=== PATIENT | male | born 1955 | race Caucasian/White ===

== ENCOUNTER → 2024-05-02 | Outpatient (CLI) | payer MEDICARE, SELFPAY ==
[2024-05-02 15:16] LABS: Free T4 (Free Thyroxine) 1.34 ng/dL (0.89-1.76); Thyroid Stimulating Hormone 6.44 uIU/mL (0.55-4.78)
== END | disposition home or self-care (01) ==
PROVIDERS: PCP Family Medicine; Referring Provider Family Medicine; Visit Provider Family Medicine
DX: E03.2 Hypothyroidism due to medicaments and other exogenous substances (principal)
CPT/HCPCS: 36415; 84439; 84443

== ENCOUNTER 2024-05-06 16:25 | Emergency (ER) | payer MEDICARE, SELFPAY ==
--- NOTE | 2024-05-06 16:32 | EKG_ITS ---
[facility] Test Date: 2024-05-06 Pat Name: HOLLIE LEMA Department: Room: - Gender: Male [employer] Eligibility Assistant: : 1955 Requested By: Subhash Santiago Order Number: [id number] Reading MD: Subhash Santiago Measurements Intervals Theresa Rate: 48 P: NC: QRS: -9 QRSD: 94 T: 62 QT: 430 QTc: 386 Interpretive Statements ATRIAL FIBRILLATION WITH SLOW VENTRICULAR RESPONSE POSSIBLE ANTERIOR MYOCARDIAL INFARCTION , OF INDETERMINATE AGE [30 ms Q WAVE IN V3/V4, OR R < 0.2 mV IN V4] Compared to ECG 06/26/2023 05:44:05 Myocardial infarct finding now present /store/S0/[id number].pdf
[2024-05-06 16:55] VITALS: BP 119/79; PULSE 48; RESP 18; TEMP 37; O2SAT 95
--- NOTE | 2024-05-06 17:14 | PD.EDRME ---
Rapid Medical Screening Exam E Arrival date/time: 05/06/24 16:25 68-year-old male with a history of atrial fibrillation presents to the emergency room with a chief complaint shortness of breath, chest pain, nausea x 4 days. Patient states he has been having difficulty sleeping. I have greeted and performed a focused initial assessment of this patient. A comprehensive ED assessment and evaluation of the patient, analysis of all test results, and completion of the medical decision making process will be conducted by additional ED providers. Chief Complaint: Arrhythmia/Palpitations Vital signs: Vital Signs Temperature 98.6 F 05/06/24 16:55 Pulse Rate 48 L 05/06/24 16:55 Respiratory Rate 18 05/06/24 16:55 Blood Pressure 119/79 05/06/24 16:55 Pulse Oximetry (%) 95 05/06/24 16:55 Oxygen Delivery Method Room Air 05/06/24 16:55 Vital signs reviewed by provider: Yes
[2024-05-06 17:44] LABS: Collection Type, Urine Clean Catch; Squamous Epithelial Cell,Urine 0 /hpf (0-5)
[2024-05-06 17:46] LABS: Basophils % (Auto) 1 % (0-2.5); Eosinophils # (Auto) 0.2 Thou/mm3 (0.0-0.5); Eosinophils % (Auto) 3 % (0-10); Hematocrit 36.1 % (41.0-53.0); Hemoglobin 13.1 g/dL (13.5-16.0); Immature Granulocytes % (Auto) 1 % (0-0); Immature Granulocytes Auto 0.04 Thou/mm3 (0.00-0.00); Lymphocytes % (Auto) 27 % (10-50); Mean Corpuscular HGB Conc 36.3 g/dl (31.0-37.0); Mean Corpuscular Volume 88 fL (80-100); Monocytes # (Auto) 0.7 Thou/mm3 (0.0-0.8); Monocytes % (Auto) 10 % (0-12); Neutrophils # (Auto) 4.3 Thou/mm3 (1.8-7.7); Neutrophils % (Auto) 59 % (37-80); Nucleated Red Blood Cell % 0 /100 WBC (0); Platelet Count 202 Thou/mm3 (140-440); RDW Standard Deviation 40.9 fL (35.1-43.9); Red Blood Count 4.09 Miln/mm3 (4.50-5.90); White Blood Count 7.3 Thou/mm3 (3.8-10.6)
[2024-05-06 18:02] LABS: Partial Thromboplastin Time 31.3 Seconds (22.0-36.0); Prothrombin Time 11.1 Seconds (9.0-12.2)
[2024-05-06 18:10] LABS: B-Type Natriuretic Peptide 134 pg/mL (0-100)
[2024-05-06 18:13] LABS: Alanine Aminotransferase 13 U/L (10-49); Albumin, Serum 4.4 gm/dL (3.4-4.8); Albumin/Globulin Ratio 1.8 (1.2-2.2); Alkaline Phosphatase 46 U/L (46-116); Anion Gap 6 (7-16); Aspartate Amino Transferase 11 U/L (0-34); BUN/Creatinine Ratio 23 Ratio (12-20); Bilirubin,Total 0.6 mg/dL (0.3-1.2); Blood Urea Nitrogen 23 mg/dL (9-23); Calcium 9.6 mg/dL (8.3-10.6); Calcium (Corrected) 9.6 mg/dL (8.5-10.1); Carbon Dioxide 26.9 mMol/L (20.0-31.0); Chloride 105 mMol/L (98-107); Free T4 (Free Thyroxine) 1.29 ng/dL (0.89-1.76); Globulin 2.5 gm/dL (2.3-3.5); Glucose 94 mg/dL (74-106); Magnesium 2.4 mg/dL (1.6-2.6); Osmolality,Calculated 279 (275-295); Sodium 138 mMol/L (136-145); Thyroid Stimulating Hormone 5.29 uIU/mL (0.55-4.78); Total Protein 6.9 gm/dL (5.7-8.2); Troponin I < 0.020 ng/mL (0.0-0.045); eGFR > 60 See Note
--- NOTE | 2024-05-06 18:28 | PD.EDARRY ---
ED Arrhythmia Palp. RME/HPI General Chief Complaint: Arrhythmia/Palpitations Stated Complaint: Afib sent by Dr. Story Time Seen by Provider: 05/06/24 18:19 Arrival date/time: 05/06/24 16:25 RME / HPI RME / HPI narrative: 05/06/24 16:25 68-year-old male with a history of atrial fibrillation presents to the emergency room with a chief complaint shortness of breath, chest pain, nausea x 4 days. Patient states he has been having difficulty sleeping. I have greeted and performed a focused initial assessment of this patient. A comprehensive ED assessment and evaluation of the patient, analysis of all test results, and completion of the medical decision making process will be conducted by additional ED providers. ------ This section includes all my notes and documentations, including HPI, PE, and ED course. Malvin Suh MD HPI: 68yo male with a history of aFib, HTN presents to the ED for a chief complaint of palpitations on and off for days and weeks, especially at night. Patient states he has a history of aFib and is on Eliquis 5mg BID that he is compliant with. He denies any chest pain, shortness of breath or any other associated symptoms. No other complaints reported. ROS: All negative except as documented in HPI. Physical Exam: General: Alert and oriented. Appears anxious. Eyes: Conjunctivae and lids clear. ENT: No nasal congestion. Neck: Supple. Heart: Irregularly irregular. Lungs: No respiratory distress. Good air movement. No rhonchi, wheezing, rales. Abdomen: Soft and nontender. Legs: No clubbing, cyanosis, edema. Skin: Warm and dry. Neuro: Alert and oriented X 3. I reviewed all diagnostic test results. My interpretation of the EKG is atrial fibrillation with no acute ST?T changes. Blood tests and urine tests unremarkable. At this point, diagnoses include palpitations. Prescribed a trial of Xanax and more outpatient cardiac workup. Based on my best medical judgment, made decision no further evaluation or treatment indicated at this time. Patient understands and agrees to the discharge instructions customized and printed, see [email or web address]. Discharge instructions from Dr. Suh: 1. After extensive evaluation, there is no life-threatening condition. Such as heart attack and extremely fast/slow heart rate. 2. Your symptoms may be due to underlying stress or anxiety or nerves. This is fairly common. 3. Take Xanax as needed. Whether this helps or not will be valuable information to your private doctors. 4. See your registered nurse nursery on 05/10/2024 for recheck and further care. To make sure there is no serious underlying heart condition, ask to help you get more tests for your heart that cannot be done here in the ER. Such as Holter Monitor (cardiac monitoring at home from a day to even a month), heart stress test (on treadmill or with medication), echocardiogram (imaging of your heart structures), heart catherization (checking for blockages in your heart arteries), and cardioversion. 5. Seek immediate medical care with worsening or with any concerns. Malvin Suh MD Related Data Home Medications ?Medication ?Instructions ?Recorded ?Confirmed famotidine 20 mg tablet (Pepcid) 20 mg PO BID 03/26/18 03/26/18 gabapentin 300 mg capsule 900 mg PO BID 03/26/18 03/26/18 (Neurontin) levothyroxine 175 mcg tablet 175 mcg PO QDAY 03/26/18 03/26/18 nebivolol 5 mg tablet (Bystolic) 1 tab PO DAILY 03/26/18 03/26/18 hydrocodone 10 mg-acetaminophen 1 tab PO [id number] PRN Pain 03/27/18 03/27/18 325 mg tablet ([place]) tramadol 200 mg tablet,extended 200 mg PO QDAY 03/27/18 03/27/18 release 24hr mphase Previous Rx's ?Medication ?Instructions ?Recorded alprazolam 0.5 mg tablet (Xanax) 0.5 mg PO BID PRN anxiety #10 tabs 05/06/24 Allergies Allergy/AdvReac Type Severity Reaction Status Date / Time Penicillins Allergy Intermediate Rash Verified 05/06/24 16:31 Sulfa (Sulfonamide Allergy Verified 05/06/24 16:31 Antibiotics) Review of Systems Review of Systems Systems Reviewed: All systems reviewed, normal except as documented Past Medical History Past Medical History NEUROLOGIC: Positive Neurological Disorders (Tardive kinesia) CARDIAC: Positive Atrial Fibrillation and Hypertension; Negative Cardiac Disorders or Congestive Heart Failure RESPIRATORY: Negative Chronic Obstructive Pulmonary Disease (COPD) or Asthma GASTROINTESTINAL: Positive Gastrointestinal Disorders, Gall Bladder Disease and Hiatal Hernia GENITOURINARY: Negative Renal Disease ENDOCRINE: Positive Endocrine Disorders and Hypothyroidism; Negative Diabetes Mellitus Type 1 or Diabetes Mellitus Type 2 HEMATOLOGIC: Negative Sickle Cell Disease Surgical History SURGICAL: Positive Abdominal Surgery Social History SMOKING STATUS: Never smoker ED Exam Narrative Physical exam: As noted in HPI. Course Quality Measures none Orders Category Date Time Status EKG (ED ONLY) *Do not use* NOW Care 05/06/24 16:32 Completed EKG (ED Only) Stat Exams 05/06/24 16:32 Draft B-Type Natriuretic Peptide Stat Lab 05/06/24 17:23 Completed CBC Stat Lab 05/06/24 17:23 Completed Comprehensive Metabolic Panel Stat Lab 05/06/24 17:23 Completed Drug Screen,Urine Stat Lab 05/06/24 17:36 Received Free T4 (Free Thyroxine) Stat Lab 05/06/24 17:23 Completed Magnesium Stat Lab 05/06/24 17:23 Completed Partial Thromboplastin Time Stat Lab 05/06/24 17:23 Completed Prothrombin Time with INR Stat Lab 05/06/24 17:23 Completed TSH [Thyroid Stimulating Hormone] Stat Lab 05/06/24 17:23 Completed Troponin I Stat Lab 05/06/24 17:23 Completed Urinalysis Stat Lab 05/06/24 17:36 Received Vital Signs Vital signs: Vital Signs Temperature 98.6 F 05/06/24 16:55 Pulse Rate 48 L 05/06/24 16:55 Respiratory Rate 18 05/06/24 16:55 Blood Pressure 119/79 05/06/24 16:55 Pulse Oximetry (%) 95 05/06/24 16:55 Oxygen Delivery Method Room Air 05/06/24 16:55 Arrhythmia/Palpitations MDM Narrative MDM Narrative:: Scribe Attestation: 05/06/24 Maryse Dietz am scribing for and in the presence of Dr. Suh. Patient data External records reviewed:: [facility] previous records (Per chart review, patient was seen here on 06/26/23 for chronic aFib.) Clinical information provided by:: patient Social determinants that could affect healthcare access:: none Patient has the following chronic illnesses:: aFib, HTN How is presenting disease/condition affected by chronic disease/condition?: caused by Evaluation data The following diagnostics were reviewed and interpreted by me:: lab results and EKG tracing(s) (My interpretation of the EKG is: Atrial fibrillation (48 bpm) with nonspecific ST-T changes. Malvin Suh MD) Lab and/or radiology exams considered but not ordered:: none Interpretation Summary: Normal diagnostics Medications / Prescriptions Medications or Prescriptions considered but not ordered:: none Medication administrations:: none Consultations Consultation(s) initiated? (list below): No Diagnosis Differential diagnosis arrhythmia/palpitations: palpitations, anxiety, sinus tachycardia, artial fibrillation, artial flutter, ventricular premature beats, supraventricular tachycardia and ventricular tachycardia Most likely diagnosis given after review of the tests above:: Palpitations due to anxiety Admission Indicated Admission indicated?: not indicated Explain why admission is indicated or not indicated:: No criteria for admission. Admission Request Was there a request for admission?: No Disposition Plan Disposition Plan: Discharge Discharge Attestation Discharge Attestation: The patient and all family members were given an opportunity to ask questions and understood the discharge instructions. Discharge instructions specifically effects, indications for sooner follow up or return to the emergency department, and the expected course of current diagnosis. Patient condition: Stable Discharge Plan Plan Patient Disposition: HOME (Self Care) Prescriptions/Referrals Prescriptions/Med Rec: New alprazolam [Xanax] 0.5 mg tablet 0.5 mg PO BID PRN (Reason: anxiety) Qty: 10 0RF No Action levothyroxine 175 mcg Tablet 175 mcg PO QDAY gabapentin [Neurontin] 300 mg Capsule 900 mg PO BID nebivolol [Bystolic] 5 mg Tablet 1 tab PO DAILY famotidine [Pepcid] 20 mg Tablet 20 mg PO BID hydrocodone-acetaminophen [[place]] 10-325 mg Tablet 1 tab PO [id number] PRN (Reason: Pain) tramadol 200 mg Tablet, Er Multiphase 24 Hr 200 mg PO QDAY Problem List Clinical Impression: Palpitations Patient/Caregiver Discharge Instructions Discharge Activity: activity as tolerated Education Materials: ED Palpitations Additional Instructions: Discharge instructions from Dr. Suh: 1. After extensive evaluation, there is no life-threatening condition.? Such as heart attack and extremely fast/slow heart rate. 2. Your symptoms may be due to underlying stress or anxiety or nerves.? This is fairly common. 3. Take Xanax as needed.? Whether this helps or not will be valuable information to your private doctors. 4. See your registered nurse nursery on 05/10/2024 for recheck and further care. To make sure there is no serious underlying heart condition, ask to help you get more tests for your heart that cannot be done here in the ER.? Such as Holter Monitor (cardiac monitoring at home from a day to even a month), heart stress test (on treadmill or with medication), echocardiogram (imaging of your heart structures), heart catherization (checking for blockages in your heart arteries), and cardioversion. 5. Seek immediate medical care with worsening or with any concerns.?? Print Language: Swazi Stand Alone Forms: Kaitlin Award Info., Patient Portal Info Letter
[2024-05-06 18:48] LABS: Bilirubin,Urine Negative (Negative); Blood,Urine Negative (Negative); Clarity,Urine Clear (Clear/Hazy); Color,Urine Lt-Yellow (Lt Yel-Yel); Glucose, Urine Negative (Negative); Ketones,Urine Negative (Negative); Leukocyte Esterase,Urine Negative (Negative); Nitrite,Urine Negative (Negative); PH,Urine 5.5 (5.0-7.0); Protein,Urine Negative (Neg - Trace); RBC,Urine 1 /hpf (0-3); Specific Gravity,Urine 1.028 (1.001-1.035); Urobilinogen,Urine Negative mg/dL (0.0-1.0); WBC,Urine 1 /hpf (0-5)
[2024-05-06 18:57] LABS: Amphetamine/Methamp Scrn,U Negative (Negative); Barbiturate Screen,Urine Negative (Negative); Benzodiazepines Screen,Urine Negative (Negative); Benzoylecgonine Screen, Ur Negative (Negative); Fentanyl Screen,Urine Negative (Negative); Opiate Screen,Urine Positive (Negative); THC Screen,Urine Positive (Negative)
== END 2024-05-06 20:00 | disposition home or self-care (01) ==
LOC: SERX 22:48
PROVIDERS: Nurse Practitioner Family; Emergency Provider Emergency Medicine
DX: I48.91 Unspecified atrial fibrillation (principal); I10 Essential (primary) hypertension; Z79.01 Long term (current) use of anticoagulants
CPT/HCPCS: 36415; 80053; 80307; 81001; 83735; 83880; 84439; 84443; 84484; 85025; 85610; 85730; 93005; 99283

== ENCOUNTER → 2024-06-09 | Outpatient (CLI) | payer MEDICARE, BC, SELFPAY ==
--- NOTE | 2024-06-09 | XR_ITS ---
Examination: Wrist, left 3 views Technique: Wrist AP, oblique, lateral 3 views Date and time of exam: June 09, 2024 1155 hours INDICATIONS: Left breast wrist pain one year FINDINGS: Moderate osteopenia. Moderate to advanced osteoarthritis first carpometacarpal joint Mild narrowing radiocarpal joint No fracture IMPRESSION: Moderate to advanced osteoarthritis first carpometacarpal joint
--- NOTE | 2024-06-09 | XR_ITS ---
Examination: Hand, left 3 views Technique: Hand AP, oblique, lateral 3 views Date and time of exam: June 09, 2024 1155 hours INDICATIONS: Left hand pain beginning one year ago. FINDINGS: Moderate osteopenia Moderate to advanced osteoarthritis first carpometacarpal joint Milder osteoarthritis intercarpal joints No fracture IMPRESSION: Moderate to advanced osteoarthritis first carpometacarpal joint
== END | disposition home or self-care (01) ==
PROVIDERS: PCP Family Medicine
DX: M18.12 Unilateral primary osteoarthritis of first carpometacarpal joint, left hand (principal)
CPT/HCPCS: 73110; 73130

== ENCOUNTER → 2024-07-07 | Outpatient (CLI) | payer MEDICARE, BC, SELFPAY ==
[2024-07-07 15:40] LABS: Free T4 (Free Thyroxine) 1.11 ng/dL (0.89-1.76); Thyroid Stimulating Hormone 30.35 uIU/mL (0.55-4.78)
== END | disposition home or self-care (01) ==
LOC: COPL 14:29
PROVIDERS: PCP Internal Medicine Cardiovascular Disease; Referring Provider Family Medicine; Visit Provider Family Medicine
DX: E03.2 Hypothyroidism due to medicaments and other exogenous substances (principal)
CPT/HCPCS: 36415; 84439; 84443

== ENCOUNTER → 2024-08-22 | Outpatient (CLI) | payer MEDICARE, BC, SELFPAY ==
[2024-08-22 11:28] LABS: Basophils # (Auto) 0.1 Thou/mm3 (0.0-0.2); Basophils % (Auto) 1 % (0-2.5); Eosinophils # (Auto) 0.1 Thou/mm3 (0.0-0.5); Eosinophils % (Auto) 1 % (0-10); Hematocrit 40.3 % (41.0-53.0); Hemoglobin 14.2 g/dL (13.5-16.0); Immature Granulocytes % (Auto) 1 % (0-0); Immature Granulocytes Auto 0.04 Thou/mm3 (0.00-0.00); Lymphocytes # (Auto) 1.2 Thou/mm3 (1.0-4.8); Lymphocytes % (Auto) 16 % (10-50); Mean Corpuscular HGB Conc 35.2 g/dl (31.0-37.0); Mean Corpuscular Hemoglobin 32.6 pg (25.0-35.0); Mean Corpuscular Volume 92 fL (80-100); Monocytes # (Auto) 0.6 Thou/mm3 (0.0-0.8); Monocytes % (Auto) 8 % (0-12); Neutrophils # (Auto) 5.9 Thou/mm3 (1.8-7.7); Neutrophils % (Auto) 74 % (37-80); Nucleated Red Blood Cell % 0 /100 WBC (0); Platelet Count 275 Thou/mm3 (140-440); RDW Standard Deviation 44.9 fL (35.1-43.9); Red Blood Count 4.36 Miln/mm3 (4.50-5.90)
[2024-08-22 11:54] LABS: Alanine Aminotransferase 13 U/L (10-49); Albumin, Serum 4.7 gm/dL (3.4-4.8); Alkaline Phosphatase 49 U/L (46-116); Anion Gap 12 (7-16); Aspartate Amino Transferase 13 U/L (0-34); BUN/Creatinine Ratio 12 Ratio (12-20); Blood Urea Nitrogen 13 mg/dL (9-23); Calcium 9.2 mg/dL (8.3-10.6); Calcium (Corrected) 9.2 mg/dL (8.5-10.1); Carbon Dioxide 26.2 mMol/L (20.0-31.0); Chloride 105 mMol/L (98-107); Creatinine (Component) 1.1 mg/dL (0.6-1.3); Ferritin 344 ng/mL (10.5-307.3); Free T4 (Free Thyroxine) 1.47 ng/dL (0.89-1.76); Globulin 2.3 gm/dL (2.3-3.5); Glucose 106 mg/dL (74-106); Iron 105 mcg/dL (65-175); Osmolality,Calculated 285 (275-295); Potassium 3.9 mMol/L (3.4-5.1); Sodium 143 mMol/L (136-145); Thyroid Stimulating Hormone 4.21 uIU/mL (0.55-4.78); eGFR > 60 See Note
[2024-08-22 11:57] LABS: Vitamin B12 610 pg/mL (211-911); Vitamin D 25 Hydroxy Total 28.2 ng/mL (7.3-40.2)
== END | disposition home or self-care (01) ==
LOC: COPL 10:23
PROVIDERS: PCP Family Medicine; Referring Provider Family Medicine; Visit Provider Family Medicine
DX: D50.0 Iron deficiency anemia secondary to blood loss (chronic) (principal); E55.9 Vitamin D deficiency, unspecified; E53.8 Deficiency of other specified B group vitamins; E03.2 Hypothyroidism due to medicaments and other exogenous substances
CPT/HCPCS: 36415; 80053; 82306; 82607; 82728; 83540; 84439; 84443; 85025

== ENCOUNTER → 2024-09-21 | Outpatient (CLI) | payer MEDICARE, BC, SELFPAY ==
[2024-09-21 14:16] LABS: Free T4 (Free Thyroxine) 1.52 ng/dL (0.89-1.76); Thyroid Stimulating Hormone 4.50 uIU/mL (0.55-4.78)
== END | disposition home or self-care (01) ==
LOC: COPL 13:20
PROVIDERS: PCP Family Medicine; Referring Provider Family Medicine; Visit Provider Family Medicine
DX: E03.2 Hypothyroidism due to medicaments and other exogenous substances (principal)
CPT/HCPCS: 36415; 84439; 84443

== ENCOUNTER → 2024-12-01 | Outpatient (CLI) | payer MEDICARE, BC, SELFPAY ==
[2024-12-01 13:59] LABS: Collection Type, Urine Clean Catch; RBC,Urine 0 /hpf (0-3); Squamous Epithelial Cell,Urine 0 /hpf (0-5); WBC,Urine 0 /hpf (0-5)
[2024-12-01 15:07] LABS: Sed Rate (ESR) 15 mm/hr (0-20)
[2024-12-01 15:16] LABS: Alanine Aminotransferase 9 U/L (10-49); Albumin, Serum 4.8 gm/dL (3.4-4.8); Albumin/Globulin Ratio 2.3 (1.2-2.2); Alkaline Phosphatase 50 U/L (46-116); Anion Gap 11 (7-16); Aspartate Amino Transferase 12 U/L (0-34); BUN/Creatinine Ratio 9 Ratio (12-20); Bilirubin,Total 0.8 mg/dL (0.3-1.2); Blood Urea Nitrogen 9 mg/dL (9-23); Calcium 9.8 mg/dL (8.3-10.6); Calcium (Corrected) 9.8 mg/dL (8.5-10.1); Carbon Dioxide 25.0 mMol/L (20.0-31.0); Cardiac Risk Estimate 3.2 RATIO (4.0-6.7); Chloride 103 mMol/L (98-107); Cholesterol 167 mg/dL (132-200); Creatinine (Component) 1.0 mg/dL (0.6-1.3); Free T4 (Free Thyroxine) 1.26 ng/dL (0.89-1.76); Globulin 2.1 gm/dL (2.3-3.5); Glucose 80 mg/dL (74-106); HDL Cholesterol 52 mg/dL (40-60); LDL Cholesterol,Calculated 85 mg/dL (0-130); Osmolality,Calculated 275 (275-295); Potassium 3.8 mMol/L (3.4-5.1); Sodium 139 mMol/L (136-145); Thyroid Stimulating Hormone 11.67 uIU/mL (0.55-4.78); Total Protein 6.9 gm/dL (5.7-8.2); Triglycerides 151 mg/dL (30-150); eGFR > 60 See Note
[2024-12-01 17:05] LABS: Bilirubin,Urine Negative (Negative); Blood,Urine Negative (Negative); Color,Urine Yellow (Lt Yel-Yel); Glucose, Urine Negative (Negative); Ketones,Urine Negative (Negative); Leukocyte Esterase,Urine Negative (Negative); Nitrite,Urine Negative (Negative); PH,Urine 5.5 (5.0-7.0); Protein,Urine Trace (Neg - Trace); Specific Gravity,Urine 1.031 (1.001-1.035); Urobilinogen,Urine Negative mg/dL (0.0-1.0)
[2024-12-01 17:07] LABS: Clarity,Urine Turbid (Clear/Hazy)
== END | disposition home or self-care (01) ==
PROVIDERS: PCP Family Medicine; Referring Provider Internal Medicine Cardiovascular Disease; Visit Provider Family Medicine
DX: E78.1 Pure hyperglyceridemia (principal); E03.2 Hypothyroidism due to medicaments and other exogenous substances; D69.0 Allergic purpura; Z13.1 Encounter for screening for diabetes mellitus; N39.0 Urinary tract infection, site not specified
CPT/HCPCS: 36415; 80053; 80061; 81001; 84439; 84443; 85652

== ENCOUNTER → 2024-12-12 | Outpatient (CLI) | payer MEDICARE, BC, SELFPAY ==
--- NOTE | 2024-12-12 09:31 | XR_ITS ---
Examination: PA lateral chest 2 views TECHNIQUE: Upright PA lateral chest 2 views Date and time: December 12, 2024 0948 hours INDICATIONS: Shortness of breath beginning one week ago. FINDINGS: Normal heart size. Increased AP dimension chest. No pneumonia or pulmonary edema Chronic wedging T12 vertebral body IMPRESSION: No pneumonia or pulmonary edema
== END | disposition home or self-care (01) ==
PROVIDERS: PCP Family Medicine; Referring Provider Family Medicine; Visit Provider Family Medicine
DX: R06.02 Shortness of breath (principal)
CPT/HCPCS: 71046

== ENCOUNTER → 2025-01-30 | Outpatient (CLI) | payer MEDICARE, BC, SELFPAY ==
[2025-01-30 16:51] LABS: Basophils # (Auto) 0.1 Thou/mm3 (0.0-0.2); Basophils % (Auto) 1 % (0-2.5); Eosinophils # (Auto) 0.1 Thou/mm3 (0.0-0.5); Eosinophils % (Auto) 1 % (0-10); Hematocrit 41.0 % (41.0-53.0); Hemoglobin 14.1 g/dL (13.5-16.0); Immature Granulocytes Auto 0.05 Thou/mm3 (0.00-0.00); Lymphocytes # (Auto) 1.9 Thou/mm3 (1.0-4.8); Lymphocytes % (Auto) 20 % (10-50); Mean Corpuscular HGB Conc 34.4 g/dl (31.0-37.0); Mean Corpuscular Hemoglobin 31.6 pg (25.0-35.0); Mean Corpuscular Volume 92 fL (80-100); Monocytes # (Auto) 0.6 Thou/mm3 (0.0-0.8); Monocytes % (Auto) 6 % (0-12); Neutrophils # (Auto) 7.1 Thou/mm3 (1.8-7.7); Neutrophils % (Auto) 72 % (37-80); Nucleated Red Blood Cell # 0.00 Thou/mm3 (0.00-0.00); Nucleated Red Blood Cell % 0 /100 WBC (0); Platelet Count 293 Thou/mm3 (140-440); RDW Standard Deviation 42.9 fL (35.1-43.9); Red Blood Count 4.46 Miln/mm3 (4.50-5.90); White Blood Count 9.9 Thou/mm3 (3.8-10.6)
[2025-01-30 17:03] LABS: Prostate Specific Antigen 0.83 ng/mL (0-4.00)
[2025-01-30 17:09] LABS: Free T4 (Free Thyroxine) 1.28 ng/dL (0.89-1.76); Thyroid Stimulating Hormone 3.20 uIU/mL (0.55-4.78)
== END | disposition home or self-care (01) ==
PROVIDERS: PCP Family Medicine; Referring Provider Family Medicine; Visit Provider Family Medicine
DX: D50.0 Iron deficiency anemia secondary to blood loss (chronic) (principal); N42.9 Disorder of prostate, unspecified; E03.2 Hypothyroidism due to medicaments and other exogenous substances
CPT/HCPCS: 36415; 84153; 84439; 84443; 85025